=== PATIENT | female | born 1950 | race Caucasian/White ===

== ENCOUNTER 2018-11-17 05:20 | Day surgery (SDC) ==
--- NOTE | 2018-11-10 11:00 | EKG Report ---
Test Performed on : 11/10/2018 10:51:42 AM Test Reason : PAT Blood Pressure : / mmHG Vent. Rate : 062 BPM Atrial Rate : 062 BPM P-R Int : 188 ms QRS Dur : 090 ms QT Int : 408 ms P-R-T Axes : 060 012 073 degrees QTc Int : 414 ms Normal sinus rhythm. Normal ECG No previous ECGs available Confirmed by Geoffrey GILBERT, Gabriel ([id number]) on 11/11/2018 8:56:03 AM
[2018-11-10 11:09] LABS: BASO# 0.01 X1000 (0.0-0.2); BASO% 0.2 % (0.0-0.8); HEMATOCRIT 40.1 % (37.0-47.0); HEMOGLOBIN 13.4 g/dL (12.0-16.0); LYMPH# 1.56 X1000 (1.2-3.4); LYMPH% 27.3 % (20.5-51.1); MCH 30.2 PG (27-31); MCHC 33.4 g/dL (33-37); MCV 90.3 FL (81-99); MONO# 0.44 X1000 (0.11-0.59); MONO% 7.7 % (1.7-9.3); MPV 9.9 FL (7.4-10.4); NEUT# 3.71 X1000 (1.4-6.5); NEUT% 64.8 % (42.2-75.2); PLT 185 X1000 (130-400); RBC 4.44 XMIL (4.2-5.4); RDW 12.6 % (11.5-14.5); WBC 5.72 X1000 (4.8-10.8)
[2018-11-10 12:08] LABS: AGAP 10; BUN 18 mg/dL (8-22); CALCIUM 8.8 mg/dL (8.8-10.2); CHLORIDE 105 mmol/L (98-107); COSMO 284; CREATININE 0.9 mg/dL (0.5-0.9); ESTIMATED GFR > 60; GLUCOSE 88 mg/dL (70-104); POTASSIUM 4.3 mmol/L (3.5-5.1); SODIUM 142 mmol/L (136-145); TCO2 27 mmol/L (25-35)
--- NOTE | 2018-11-16 13:24 | HISTORY AND PHYSICAL ---
HISTORY OF PRESENT ILLNESS: The patient is a 68-year-old female who is referred to me by Dr. Payal Jara after being a patient of Dr. Wilda Minor for many years. The patient is considering a new marriage, and prior to her last marriage ending, she was having difficulty with pain with intercourse and was having increasing problems with symptomatic pelvic organ prolapse. She has issues with incomplete bladder emptying secondary to her anatomic dysfunction and is on current daily medication for UTI prophylaxis. She has had a prior vaginal surgery with some type of vaginal reconstruction at that time. She had a colonoscopy in the last several years that was found to be within normal limits. Her exam is consistent with POP-Q stage 3 prolapse. She is wishing to proceed with surgical intervention. PAST MEDICAL HISTORY: Positive for hypertension, hypothyroidism, hypercholesterolemia, left carotid artery stenosis and osteoarthritis. PAST SURGICAL HISTORY: Positive for vaginal hysterectomy with some type of vaginal reconstruction by Dr. Minor, a bilateral salpingo-oophorectomy, left shoulder surgery and a left chest tube. She is noted to be a para 2-0-0-2. ALLERGIES: None. CURRENT MEDICATIONS: Testosterone sj by Dr. Davis, liothyronine 5 mcg, escitalopram 20, montelukast 10, carvedilol 6.25, losartan 50, levothyroxine 88 mcg, atorvastatin 40, lansoprazole 30, and p.r.n. medications. SOCIAL HISTORY: Negative for tobacco, ETOH or drugs. PHYSICAL EXAMINATION: GENERAL: BMI is 26. HEENT: Normocephalic and atraumatic. PERRLA. EOMI. NECK: No thyromegaly. CARDIOVASCULAR: Regular rate and rhythm without murmur, gallop or rub. PULMONARY: Clear. ABDOMEN: Soft. GENITOURINARY: POP-Q stage 3 prolapse. BP is plus 2. AA is plus 1. BA is minus 1. TVL is 10. AP is plus 1. GH is 8. PB is 4. NEUROLOGICAL: Afocal. EXTREMITIES: Without cyanosis, clubbing or edema. The patient also has a firm area in the vaginal mucosa near the urethrovesical neck that feels like a granuloma that is tender to her on examination. It is thought that this is probably an inclusion cyst, and therefore, we would evaluate it at the time of surgery as well. ASSESSMENT AND PLAN: The patient is with vaginal vault prolapse after hysterectomy as well as an anterior compartment granuloma, who is not interested in pessary management. We discussed conservative management as well as [place] tissue repair and robotic sacrocolpopexy, and she is wishing to proceed with this and a probable distal posterior compartment defect repair. The risks and benefits were discussed at length. She understands and is wishing to proceed. cc: Ronny Garcia MD
[2018-11-17] MEDS ORDERED: LR 1,000 ML ONE ×3 (05:56→10:24)
[2018-11-17] MEDS ORDERED: REGLAN ONE (05:56)
[2018-11-17] MEDS ORDERED: PEPCID ONE (05:56)
[2018-11-17] MEDS ORDERED: KEFZOL 1 GM/D5W 1 GM/50 ML IVPB ONE (05:56)
[2018-11-17] MEDS ORDERED: MARCAINE 0.25% PF/EPI 1:200,000 ONE (06:24)
[2018-11-17] MEDS ORDERED: SODIUM CHLORIDE 0.9% ONE (06:24)
[2018-11-17] MEDS ORDERED: D10W 1,000 ML ONE (06:24)
[2018-11-17] MEDS ORDERED: ROBINUL ONE ×3 (06:32→09:38)
[2018-11-17] MEDS ORDERED: QUELICIN (DOSE) ONE (06:32)
[2018-11-17] MEDS ORDERED: XYLOCAINE-MPF 2% ONE (06:32)
[2018-11-17] MEDS ORDERED: DIPRIVAN 1% ONE (06:32)
[2018-11-17] MEDS ORDERED: NORCURON ONE (06:32)
--- NOTE | 2018-11-17 06:35 | H&P REVIEW ---
H&P Update H&P Review: H&P was reviewed and patient was examined, No change has occurred in the patient's condition
[2018-11-17] MEDS ORDERED: NEOSTIGMINE ONE ×2 (07:52→09:38)
[2018-11-17 07:55] LABS: URINE SOURCE CATH
[2018-11-17] MEDS ORDERED: TORADOL ONE (08:22)
[2018-11-17] MEDS ORDERED: LASIX ONE (08:23)
[2018-11-17 08:33] LABS: BILIRUBIN URINE NEGATIVE (NEGATIVE); BLOOD URINE NEGATIVE (NEGATIVE); COLOR YELLOW; GLUCOSE URINE NEGATIVE (NEGATIVE); KETONE URINE NEGATIVE (NEGATIVE); LEUKOCYTES URINE NEGATIVE (NEGATIVE); NITRITE URINE NEGATIVE (NEGATIVE); PH URINE 6.5; PROTEIN URINE NEGATIVE (NEGATIVE); SP GRAVITY URINE 1.004; TURBIDITY URINE CLEAR (CLEAR); UROBILINOGEN URINE NORMAL (NORMAL)
[2018-11-17 08:35] LABS: UR EPITHELIAL CELLS <10 /HPF (<10); URINE BACTERIA NEGATIVE /HPF; URINE RBC <10 /HPF (<10); URINE WBC <10 /HPF (<10)
[2018-11-17] MEDS ORDERED: VENTOLIN HFA ONE (09:35)
[2018-11-17] MEDS ORDERED: PHENERGAN ONE (10:04)
[2018-11-17] MEDS ORDERED: DEMEROL ONE (10:05)
--- NOTE | 2018-11-17 10:46 | OPERATIVE NOTE ---
PROCEDURE DATE: 11/17/2018 PREOPERATIVE DIAGNOSIS: Pelvic organ prolapse. POSTOPERATIVE DIAGNOSIS: Pelvic organ prolapse. PROCEDURE: [place] abdominal sacrocolpopexy, mid urethral sling with Obtryx. SURGEON: Dr. Ronny Garcia. TECHNOLOGY INFUSION SPECIALIST: Dr. Flor Alfaro. ANESTHESIA: General. ESTIMATED BLOOD LOSS: 40 mL. HISTORY: The patient is a 68-year-old female referred to me by Dr. Payal Jara from the [facility], who is having increasing problems with symptomatic pelvic organ prolapse. She had 1 prior [place] tissue repair vaginally that held for some time, but she now has a recurrence in the anterior and apical portion, as well as some distal posterior issues. She is wishing to proceed with surgical intervention. The risks and benefits have been discussed at length. OPERATIVE FINDINGS: The patient was found to have POP-Q stage II prolapse with the patient in a supine position asleep, most of it being anterior and apical. OPERATIVE PROCEDURE: Patient was taken to the operating room and placed in a supine position. After adequate general anesthesia obtained, she was placed in low Yellofin stirrups. Her abdomen and vagina were prepped and draped in the usual fashion. A supraumbilical incision was made. A 12 mm port and sheath were introduced through this incision into the abdominal cavity. Pelvic contents were visualized. Therefore, insufflation with CO2 to an intra-abdominal pressure of 14 was performed. The left-sided ports were placed under direct visualization after infiltration with the same local anesthetic, and then the right-sided ports were placed similarly as well. The patient was placed in the deep Trendelenburg position and EEA sizers were placed within the vagina and the anus and See catheter was placed. Output was noted to be clear. The robot was docked in the usual fashion. Hot scissors in the right hand, bipolar gyrus was in the left hand, and the Cardiere grasper was in the third arm. We initially examined the upper abdomen; it was found to be within normal limits, as was the mid abdomen. In the pelvis there was minimal to no adhesive disease. We were able to proceed immediately towards the vesicovaginal dissection. Using the third arm, we elevated the bladder away from the vaginal apex and then directed the EEA Sizer towards the rectum to help develop that space. We used primarily sharp dissection, developed the vesicovaginal space down to the level of the trigone. This was done easily with minimal cautery utilized. We then turned our attention towards the posterior compartment, and we again opened the rectovaginal space using primarily sharp and blunt dissection with minimal to no cautery. Our blood loss at this point was minimal. We went up to the promontory. She had a very prominent middle sacral artery, and we initially made the decision just to avoid that during our suture placement. We easily opened this space up as well, and identified the anterior longitudinal ligament. We created our tunnel in the right sulcal region, avoiding the ureter laterally and the colon medially. We can carry this all the way down to our prior posterior dissection. We then introduced the mesh in the usual fashion, and we started in the vesicovaginal plane by securing the mesh at multiple sites with interrupted Van Buren-Logan suture. All Van Buren-Logan knots were thrown with initial surgeon's throw and 4 half throws. After this, we placed approximately 10 to 12 sutures in the anterior compartment. In the rectovaginal space, we continued with the same knot arrangement and placed approximately 8 to 10 sutures in the posterior compartment. Third arm was brought up to the sacral promontory and, in our effort to clear this area again, we actually had a small little bit of bleeding in this area. So, decision was made to go ahead and cauterize the middle sacral artery due to a mild injury to this area. We did this without difficulty and placed 3 sutures through the anterior longitudinal ligament, securing the third arm of the mesh in this area. We used the EEA Sizers to elevate the apex of the vagina and provide the appropriate positioning of the mesh. After completion of this, we then reperitonealized using a V-LOC suture starting at the apex and working our way down. We had complete coverage of the mesh after placement of this V-LOC suture. Copious amounts of irrigation was performed, hemostasis was observed in all sites, and decision was made to terminate this portion of the procedure. The robot was undocked and a Guille-Thomasen closure system was utilized to close the supraumbilical port, as well as the assistance port with a 0 Vicryl ligature. This closed the peritoneum and fascia. Nursing Services closed all skin incisions after deflation of the abdomen with the typical 4.0 subcuticular Vicryl, and then the surgical glue. Vaginally, we then went below and did a close examination. We had excellent support apically, anteriorly as well as posteriorly. It was not felt that we needed to do the distal compartment reconstruction. We proceeded directly to sling placement. The urethra was grasped proximally and distally, and approximately 8-10 mL of the same local anesthetic was injected for hydrodissection, as well as pain management in this area. A sagittal incision was made. Metzenbaum scissors were utilized to dissect up towards the ischial pubic ramus at approximately 10 o'clock and 2 o'clock position. After completion of this, the adductor longus was identified, as well as the obturator canal. Stab incision was made in this area initially on the left-hand side. The halo device was introduced through this incision, through the obturator canal to the deposition operator's finger, which directed the needle out. The mesh was attached to it. It was retracted back through the skin. This was performed on the contralateral side in a similar fashion. See catheter was removed. Cystoscope was introduced. The bladder was filled approximately 250 to 300 mL of D 10. Both ureters were effluxing urine without any difficulty, and there were no abnormalities of the bladder mucosa. There was no evidence of any suture placement or any mesh placement from the sling. The urethra was also noted to be within normal limits. Cystoscope was removed. A Brie clamp was placed in the mid urethral position. The tape was brought out with the Brie clamp. Blue tag was excised. The sheaths were easily removed. There was no tension on the mid urethral incision at all. The mid urethral incision was closed with a running 2.0 Vicryl ligature. Sponge count, instrument count and needle counts were correct x3. Rectal examination was found to be within normal limits. There was no banding whatsoever in the vaginal canal, and the patient was taken out of the low adjustable stirrups. She was awakened, taken to the recovery room with vital signs stable. cc: Ronny Garcia MD
[2018-11-17] MEDS ORDERED: RESTASIS 0.05% OPH DROPS BOTH EYES PRN (11:20)
[2018-11-17] MEDS: LR 1,000 ML IV SCH (11:20)
[2018-11-17] MEDS ORDERED: NORCO-5 PO PRN (11:20)
[2018-11-17] MEDS ORDERED: ZOFRAN ODT PO PRN (11:20)
[2018-11-17] MEDS: COLACE PO SCH ×2 (13:24→21:34)
[2018-11-17] MEDS: SINGULAIR PO SCH (13:24)
[2018-11-17] MEDS: COZAAR PO SCH ×2 (13:25→21:35)
[2018-11-17] MEDS: COREG PO SCH ×2 (13:28→21:34)
[2018-11-17] MEDS: CLARITIN PO SCH (13:29)
[2018-11-17] MEDS: LEXAPRO PO SCH (13:30)
[2018-11-17] MEDS: LIPITOR PO SCH (13:31)
[2018-11-17] MEDS: SYNTHROID PO SCH (13:31)
[2018-11-17] MEDS: TORADOL IV SCH ×2 (13:32→18:47)
[2018-11-17] MEDS: PERIDEX MT SCH ×2 (13:33→21:34)
--- NOTE | 2018-11-17 14:36 | PROGRESS NOTE ---
DATE: 11/17/2018 DATE AND TIME: Date is 11/17/2018 and time is approximately 2:30. OBJECTIVE: The patient is alert and oriented x 3. Afebrile. Vital signs stable. Urine output is clear. ASSESSMENT AND PLAN: Routine postoperative care through the day and evening. In the morning if she has a good night she will undergo voiding trial and after completion of the voiding trial be discharged home. cc: Ronny Garcia MD
[2018-11-17] MEDS ORDERED: AYR NASAL SPRAY NAS PRN (19:31)
[2018-11-18] MEDS: TORADOL IV SCH ×2 (01:30→05:49)
[2018-11-18] MEDS: LR 1,000 ML IV SCH (04:53)
[2018-11-18] MEDS: PRILOSEC PO SCH ×2 (05:49→06:17)
--- NOTE | 2018-11-18 06:51 | DISCHARGE SUMMARY ---
ADMISSION DATE: 11/17/2018 DISCHARGE DATE: 11/18/2018 PRINCIPAL DIAGNOSIS: Pelvic organ prolapse. PROCEDURE: Robotic abdominal sacrocolpopexy, mid urethral sling with Obtryx. SURGEON: Ronny Garcia MD HISTORY: The patient is a 68-year-old female referred to me by Dr. Payal Jara who has been having increasing problems with symptomatic pelvic organ prolapse. She had undergone a prior vaginal [place] tissue repair and was having a recurrence. She was admitted for definitive surgical intervention. HOSPITAL COURSE: The patient underwent the above-stated procedure. Blood loss at that time was approximately 25 mL. Her postoperative course has been uncomplicated. She is currently undergoing a voiding trial, and is discharged home with instructions for followup in 2 weeks. DISCHARGE MEDICATIONS: 1. Ponce. 2. Colace. 3. Toradol. DISCHARGE DIET AND ACTIVITY: She was instructed in regular diet and decreased activity. cc: Ronny Garcia MD
[2018-11-18] MEDS: PERIDEX MT SCH (07:58)
[2018-11-18] MEDS: SINGULAIR PO SCH (07:58)
[2018-11-18] MEDS: LIPITOR PO SCH (07:58)
[2018-11-18] MEDS: COREG PO SCH (07:59)
[2018-11-18] MEDS: COLACE PO SCH (07:59)
[2018-11-18] MEDS: CLARITIN PO SCH (07:59)
[2018-11-18] MEDS: SYNTHROID PO SCH (07:59)
[2018-11-18] MEDS: COZAAR PO SCH (07:59)
[2018-11-18] MEDS: LEXAPRO PO SCH (07:59)
[2018-11-18 08:01] VITALS: BP 156/49
== END 2018-11-18 09:09 | disposition home or self-care (01) ==
LOC: 4N 05:20 → OPS 05:20 → PAT 05:20 → OPS 11-18 09:09
PROVIDERS: ATTEND Obstetrics & Gynecology
CPT/HCPCS: 80048; 81001; 85025; 93005; 93010; 94761; 94799; A9270; C1771; C1781; J0330; J0690; J1885; J1940; J2175; J2550; J7120; S2900